=== PATIENT | male | born 1960 | race Two or more races ===

== ENCOUNTER 2016-11-10 09:40 | Day surgery (SDC) | payer MEDICAID ==
[~2016-11-10] VITALS: Ht 177.8 cm
--- NOTE | 2016-11-12 08:34 | OR ---
ADMIT: 11/10/2016 RM/LOC: [facility] MR#: [id number] [address] [place] [address] [facility] [address] [place] [id number] Operative/Delivery Room Report SEX: M AGE: 56 : 1960 SURGERY DATE: 11/10/2016 SURGEON: Sebastien Hardy MD DOG HANDLER: None. PREOPERATIVE DIAGNOSES: 1. Cervical spondylosis. 2. Cervicalgia. POSTOPERATIVE DIAGNOSES: 1. Cervical spondylosis. 2. Cervicalgia. OPERATION: Right C2-C3 medial branch block. INDICATION FOR PROCEDURE: ANESTHESIA: Local without sedation. ESTIMATED BLOOD LOSS: Zero. COMPLICATIONS: None immediately evident. DESCRIPTION OF PROCEDURE: After the patient was seen in the preoperative area, vital signs were taken prior to the procedure. The risks, benefits, and alternative therapies were discussed at length. Patient consent was obtained and updated. The patient was taken to Fluoroscopy Suite and placed on the fluoroscopy table in the prone position. Pressure points were padded to comfort., monitor applied, and a timeout performed. Next, the patient's jaw was turned to the left side. The patient was monitored throughout the procedure. The patient's cervical area was then ADMIT: 11/10/2016 RM/LOC: [facility] MR#: [id number] [address] [place] [address] [address] [place] [address] Operative/Delivery Room Report SEX: M AGE: 56 : 1960 prepped and draped in a sterile pattern using ChloraPrep. C-arm fluoroscopy was then brought in to identify the C2-C3 junction, and C3 waist. A 22-gauge curved-tip spinal needle was then advanced and made contact with the right C2- C3 junction, and C3 waist. Then we put in Isovue-300 to confirm the placement. Then I injected 1 ml of solution consisting of 10 mg of dexamethasone with lidocaine 1% and 0.25% bupivacaine. On examination twenty minutes after the procedure, the patient had 80% pain relief and range of motion was full at the neck. FOLLOWUP: We will see the patient back for a second set of procedure in one week. Sebastien Hardy MD/ mesha JOB #: [id number] CC: Sebastien Hardy, Attending Physician Brien Phillips, Family Physician
== END 2016-11-10 11:15 | disposition home or self-care (01) ==
LOC: SSS 09:40
PROC: BR14YZZ Fluoroscopy of Cervical Facet Joint(s) using Other Contrast (ICD-10-PCS; principal; 2016-11-10)
PROC: 3E0T33Z Introduction of Anti-inflammatory into Peripheral Nerves and Plexi, Percutaneous Approach (ICD-10-PCS; principal; 2016-11-10)
PROC: 3E0T3BZ Introduction of Anesthetic Agent into Peripheral Nerves and Plexi, Percutaneous Approach (ICD-10-PCS; principal; 2016-11-10)
DX: M47.812 Spondylosis without myelopathy or radiculopathy, cervical region (principal); M48.02 Spinal stenosis, cervical region; G89.29 Other chronic pain; M50.320 Other cervical disc degeneration, mid-cervical region, unspecified level; M47.816 Spondylosis without myelopathy or radiculopathy, lumbar region; G43.909 Migraine, unspecified, not intractable, without status migrainosus; Z79.82 Long term (current) use of aspirin; Z79.899 Other long term (current) drug therapy; F17.200 Nicotine dependence, unspecified, uncomplicated; F43.10 Post-traumatic stress disorder, unspecified

== ENCOUNTER 2017-01-05 07:42 | Day surgery (SDC) | payer MEDICAID ==
[~2017-01-05] VITALS: Ht 177.8 cm
--- NOTE | 2017-01-06 08:20 | OR ---
ADMIT: 01/05/2017 RM/LOC: [facility] MR#: [id number] [address] [place] [address] [place] [address] Operative/Delivery Room Report SEX: M AGE: 56 : 1960 SURGERY DATE: 01/05/2017 SURGEON: Sebastien Hardy MD PRICE CLERK: None. PREPROCEDURE DIAGNOSES: 1. Cervical spondylosis. 2. Cervicalgia. 3. Chronic right-sided headache. POSTPROCEDURE DIAGNOSES: 1. Cervical spondylosis. 2. Cervicalgia. 3. Chronic right-sided headache. PROCEDURE PERFORMED: Right-sided C2-C3 medial branch RFTC (radiofrequency thermocoagulation). INDICATIONS FOR PROCEDURE: The patient is a pleasant gentleman with history of chronic right-sided headache secondary to above-mentioned diagnoses comes here for planned right-sided cervical C2 and C3 RFTC. ANESTHESIA: Local without sedation. ESTIMATED BLOOD LOSS: Zero. COMPLICATIONS: None immediately evident. DESCRIPTION OF PROCEDURE: After the patient was seen in the preoperative area, vitals signs were taken. Prior to the procedure, the risks, benefits, and alternative therapies were discussed at length. Patient consent was obtained and updated. The patient was taken to the fluoroscopy suite and placed on the fluoroscopy table in the prone position. Pressure points were padded to comfort, monitors applied, and a timeout performed. The patient's jaw was turned to the left side. The patient was monitored throughout the procedure. The patient's cervical areas were then prepped and draped in sterile pattern using ChloraPrep. C-arm fluoroscopy was then brought in to identify C2 and C3 junction and C3 waist on the right side. A 20-gauge RFTC spinal needle was then advanced and made contact with the C2-C3 junction ADMIT: 01/05/2017 RM/LOC: [facility] MR#: [id number] [address] [address] [place] [address] [place] [address] Operative/Delivery Room Report SEX: M AGE: 56 : 1960 and C3 waist on the right side. Sensory testing and motor testing were then done. We then proceeded with radiofrequency ablation, which consisted of 80 degrees for 90 seconds. We did an RFTC, right C3, at 3 levels; 1st level at the C3 waist, 2nd at the C2-C3 joint, and 3rd just above the C2-C3 joint line side. The patient tolerated the procedure well and had no immediate complications. The patient was taken to the PACU where he recovered nicely and was sent home in a stable condition. PLAN: Discharge instructions were given, followup scheduled. The patient was discharged home with a driver messenger. Sebastien Hardy MD/ mesha JOB #: [id number] CC: Sebastien Hardy, Attending Physician Brien Phillips, Family Physician
== END 2017-01-05 09:40 | disposition home or self-care (01) ==
LOC: SSS 07:42
PROC: 3E0T3TZ Introduction of Destructive Agent into Peripheral Nerves and Plexi, Percutaneous Approach (ICD-10-PCS; principal; 2017-01-05)
PROC: BR14YZZ Fluoroscopy of Cervical Facet Joint(s) using Other Contrast (ICD-10-PCS; principal; 2017-01-05)
DX: G89.29 Other chronic pain (principal); M47.812 Spondylosis without myelopathy or radiculopathy, cervical region; M48.02 Spinal stenosis, cervical region; Z79.899 Other long term (current) drug therapy